=== PATIENT | female | born 1985 | race Caucasian/White ===

== ENCOUNTER 2019-06-10 16:40 | Emergency (ER) | payer OTHER, SELFPAY ==
[2019-06-10] MEDS ORDERED: Ibuprofen 200 MG TAB ONE (17:12)
[2019-06-10 17:16] LABS: Bilirubin Small (Negative); Blood, Urine Small (Negative); Clarity Cloudy (Clear); Glucose, Urine (Dipstick) Negative (Negative); Leukocyte Negative (Negative); Nitrite Negative (Negative); Protein, Urine (Dipstick) 100 mg/dL (Neg-Trace); Urobilinogen 0.2 mg/dL (Less than 2)
[2019-06-10 17:23] LABS: Bacteria/HPF 2+ HPF (None Seen); RBC/HPF 0-3 HPF (0-3)
[2019-06-10 17:24] LABS: Mucous/LPF 1+ LPF (<2+)
[2019-06-10] MEDS ORDERED: Acetaminophen 500 MG TAB ONE (18:05)
== END 2019-06-10 18:09 | disposition home or self-care (01) ==
LOC: SCSER 16:40
DX: J02.0 Streptococcal pharyngitis (principal); R32 Unspecified urinary incontinence
CPT/HCPCS: 81003; 81015; 87086; 87430; 87804; 99283